=== PATIENT | female | born 2000 | race Caucasian/White ===

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

== ENCOUNTER 2020-04-14 10:30 | Observation (INO) | payer MEDICAID, OTHER ==
[~2020-04-14] VITALS: Ht 160 cm; Wt 81.6 kg
[2020-04-14 12:42] LABS: BASOPHILS % (AUTO) 0.2 % (0.0-2.0); EOSINOPHILS # (AUTO) 0.1 K/uL (0-0.4); EOSINOPHILS % (AUTO) 0.8 % (0.0-4.0); LYMPHOCYTES # (AUTO) 1.8 K/uL (2.5-16.5); LYMPHOCYTES % (AUTO) 16.5 % (20.5-51.1); MEAN CORPUSCULAR HEMOGLOBIN 28 pg (27-31); MEAN CORPUSCULAR HGB CONC 34 g/dL (33-37); MEAN CORPUSCULAR VOLUME 84.8 fL (80-94); MONOCYTES # (AUTO) 0.7 K/uL (0.8-1.0); MONOCYTES % (AUTO) 6.1 % (1.7-9.3); NEUTROPHILS # (AUTO) 8.3 K/uL (1.8-7.7); NEUTROPHILS % (AUTO) 76.4 % (42.2-75.2); PLATELET COUNT (AUTO) 289 K/uL (140-450); RED BLOOD CELL COUNT(AUTO) 3.89 MIL/uL (4.20-5.40); RED CELL DISTRIBUTION WIDTH 13.2 % (11.6-13.7); WHITE BLOOD COUNT (AUTO) 10.9 K/uL (4.5-11.0)
[2020-04-14 13:12] LABS: ALBUMIN 2.6 g/dL (3.4-5.0); ANION GAP 12.1 (8-16); CARBON DIOXIDE 23.5 mmol/L (21-32); CREATININE 0.4 mg/dL (0.6-1.3); POTASSIUM 3.6 mmol/L (3.5-5.1); TOTAL BILIRUBIN 0.2 mg/dL (0.0-1.0)
[2020-04-14 14:03] LABS: APPEARANCE,URINE HAZY (CLEAR); BILIRUBIN,URINE NEGATIVE (NEGATIVE); BLOOD, URINE 2+ (NEGATIVE); COLOR,URINE YELLOW (YELLOW); LEUKOCYTE ESTERASE ,URINE 1+ (NEGATIVE); NITRITE, URINE NEGATIVE (NEGATIVE); UGLUCOSE NEGATIVE (NEGATIVE)
[2020-04-14 14:16] VITALS: BP 108/62
[2020-04-14 14:46] LABS: WBC,URINE NONE SEEN /HPF (0-5)
[2020-04-14] MEDS ORDERED: PNV91TAB8 PO (15:27)
[2020-04-14] MEDS ORDERED: cefTRIAXone 1,000 MG in LIDOCAINE MPF 1% 2.1 ML IM ONE (16:10)
== END 2020-04-14 16:45 | disposition home or self-care (01) ==
LOC: MLD 10:30
PROVIDERS: ADMIT Obstetrics & Gynecology; ATTEND Obstetrics & Gynecology
DX: O26.892 Other specified pregnancy related conditions, second trimester (principal); R10.30 Lower abdominal pain, unspecified; Z3A.21 21 weeks gestation of pregnancy
CPT/HCPCS: 36415; 76805; 80053; 81001; 85025; 87086; 96372; G0378; J0696; J2001; J7060; Q0092; 59025

== ENCOUNTER 2020-08-06 20:51 | Observation (INO) | payer MEDICAID, OTHER ==
[~2020-08-06] VITALS: Ht 160 cm; Wt 104.3 kg
[~2020-08-06 20:51] MED LIST: PNV91TAB8 PO
[2020-08-06 21:34] VITALS: BP 119/79
[2020-08-06] MEDS ORDERED: PRETAB PO (22:59)
--- NOTE | 2020-08-07 06:55 | NUR ---
PATIENT HAS BEEN SCREENED AND CATEGORIZED LOW NUTRITION RISK. PATIENT WILL BE SEEN WITHIN 7 DAYS OF ADMISSION. 08/14/20 ANSELMO JI MS, RDN
== END 2020-08-06 23:20 | disposition home or self-care (01) ==
LOC: MLD 20:51
PROVIDERS: ADMIT Obstetrics & Gynecology; ATTEND Obstetrics & Gynecology
DX: O26.893 Other specified pregnancy related conditions, third trimester (principal); R10.9 Unspecified abdominal pain; Z3A.38 38 weeks gestation of pregnancy
CPT/HCPCS: 81000; G0378

== ENCOUNTER 2020-11-24 19:01 | Emergency (ER) | payer OTHER ==
[~2020-11-24] VITALS: Ht 160 cm; Wt 102.1 kg
[~2020-11-24 19:01] MED LIST changes: +PRETAB PO
[2020-11-24 19:05] VITALS: BP 114/66
[2020-11-24 19:37] VITALS: BP 114/66
--- NOTE | 2020-11-24 19:42 | NUR ---
20 Y/O FEMALE CAME TO THE ED C/O PILONIDAL INCISION OPEN. PT STATES PAIN AT THE INCISION SITE; SHARP PAIN OF 5/10, DOES NOT RADIATE TO ANYWHERE ELSE. PAIN INCREASES WHEN MOVING OR BENDING OVER SURGICAL HX: PILONIDAL INCISION CYST REMOVAL, NKA
--- NOTE | 2020-11-24 20:00 | NUR ---
THIS RN FEMALE CHAPERONED MARGUERITE ALFRED FOR EXAMINATION FOR RECTAL AREA.
[2020-11-24] MEDS ORDERED: BACTO TP (20:30)
--- NOTE | 2020-11-24 20:39 | NUR ---
Patient discharged with v/s stable. Written and verbal after care instructions given and explained. Patient alert, oriented and verbalized understanding of instructions. Ambulatory with steady gait. All questions addressed prior to discharge. ID band removed. Patient advised to follow up with PMD. Rx of MUPIROCIN given. Patient educated on indication of medication including possible reaction and side effects. Opportunity to ask questions provided and answered.
== END 2020-11-24 20:39 | disposition home or self-care (01) ==
LOC: MED 19:01
DX: L05.91 Pilonidal cyst without abscess (principal); Z79.899 Other long term (current) drug therapy; Z98.890 Other specified postprocedural states
CPT/HCPCS: 99283